=== PATIENT | female | born 1965 | race African-American/Black ===

== ENCOUNTER 2018-09-13 21:04 | Emergency (ER) | payer OTHER ==
[~2018-09-13] VITALS: Ht 162.6 cm; Wt 68.0 kg
[2018-09-13 21:13] VITALS: BP 125/84
== END 2018-09-13 21:37 | disposition home or self-care (01) ==
LOC: ER 21:04
DX: S40.211A Abrasion of right shoulder, initial encounter (principal); W22.8XXA Striking against or struck by other objects, initial encounter; Y93.89 Activity, other specified; Y92.89 Other specified places as the place of occurrence of the external cause; Y99.8 Other external cause status; I10 Essential (primary) hypertension